=== PATIENT | female | born 1985 | race Caucasian/White ===

== ENCOUNTER 2023-12-03 06:31 | Emergency (ER) | payer SELFPAY ==
[2023-12-03] MEDS ORDERED: MORPHINE 4 MG/ML SYR ONE (07:09)
[2023-12-03] MEDS ORDERED: ONDANSETRON 4 MG/2 ML VIAL ONE (07:09)
[2023-12-03] MEDS ORDERED: TAMSULOSIN 0.4 MG SR CAP ONE (07:09)
[2023-12-03] MEDS ORDERED: NA CHLORIDE 0.9% 1,000 ML ONE (07:09)
[2023-12-03] MEDS ORDERED: KETOROLAC 30 MG/ML INJ ONE (07:12)
[2023-12-03 07:13] LABS: Absolute Eosinophils 0.1 K/uL (0-0.5); Absolute Lymphocytes (CBC) 3.3 K/uL (0.7-4.9); Absolute Monocytes 0.6 K/uL (0.1-1.3); Absolute Neutrophil 4.5 K/uL (1.8-8.0); Basophils % 0.4 % (0-1.3); Eosinophils % 0.8 % (0-4.4); Hematocrit 38.1 % (36.0-45.0); Hemoglobin 13.4 g/dL (12.0-15.0); MCH 33.5 pg (27.0-35.0); MCHC 35.3 g/dL (32.0-36.0); Monocytes % 6.9 % (3.3-12.3); Neutrophils % 52.9 % (41.7-73.7); Nucleated Red Blood Cells % 0.1 % (0-0); Platelets 286 thou/uL (152-406); RBC Red Blood Cell Count 4.01 M/uL (3.86-4.86); Red Cell Distribution Width 12.7 % (12.1-15.2)
[2023-12-03 07:31] LABS: Albumin/Globulin Ratio 1.1 (1.1-1.8); Anion Gap 4.6 mEq/L (5.0-15.0); Bilirubin Total 0.3 mg/dL (0.2-1.0); Globulin 3.7 g/dL (2.3-3.5); Potassium 3.6 mEq/L (3.5-5.1); Protein, Total 7.7 g/dL (6.4-8.2)
[2023-12-03 07:35] LABS: Specific Gravity 1.022 (1.005-1.030); Urine Bilirubin NEGATIVE (Negative); Urine Blood Negative (Negative); Urine Clarity Clear (Clear); Urine Color Light-Yellow (Yellow); Urine Glucose NEGATIVE (Negative); Urine Ketones NEGATIVE (Negative); Urine Microscopic Reflex YN NO UMIC; Urine Nitrite NEGATIVE (Negative); Urine Protein NEGATIVE (Negative); Urine Urobilinogen Normal (Normal); Urine pH 5.5 (5.0-7.0)
[2023-12-03 07:43] LABS: Specific Gravity 1.022 (1.005-1.030)
[2023-12-03] MEDS ORDERED: MAGNESIUM SULFATE 1 gm IVPB 1 GM/100 ML BAG IV ONE (07:54)
[2023-12-03] MEDS ORDERED: NA CHLORIDE 0.9% 500 ML ONE (07:54)
--- NOTE | 2023-12-03 08:25 | RAD REPORT ---
EXAM DESCRIPTION: CT - Abdomen Pelvis Wo Contrast - 12/03/2023 8:02 am CLINICAL HISTORY: ABD PAIN COMPARISON: No comparisons TECHNIQUE: Thin cut axial CT imaging of the abdomen and pelvis was performed without IV contrast. Mu ltiplanar reformats were generated and reviewed. All CT scans are performed using dose optimization technique as appropriate and may include automated exposure control or mA/KV adjustment according to patient size. FINDINGS: No suspicious findings in the lung bases. The liver, spleen, adrenal glands, and pancreas show no suspicious findings. Gallbladder and biliary tree are also without suspicious finding. Symmetric renal contour, without suspicious parenchymal findings within limits of noncontrast techniq ue. No evidence of hydroureteronephrosis. Nonobstructing left renal calculi the largest at the lower pole measuring 4 mm. 1-2 mm right superior pole calculus as well. No dilated bowel loops or bowel wall thickening. No free air, free fluid or inflammatory stranding. N o hernia, mass or bulky lymphadenopathy. The urinary bladder is without significant finding. No suspicious bony findings. IMPRESSION: Bilateral small nonobstructing renal calculi largest at the left lower pole measuring 4 mm. No other acute intra-abdominal process.
[2023-12-03] MEDS ORDERED: FENTANYL CITR 100 MCG/2 ML ONE (08:40)
--- NOTE | 2023-12-03 08:57 | EDPHYS ---
Physician Documentation [facility] Name: Ngoc Perdomo Age: 38 yrs Sex: Female : 1985 Arrival Date: 12/03/2023 Time: 06:31 Bed 13 Private MD: ED Physician Puma Quiroga HPI: 12/02 07:38 This 38 yrs old Female presents to ER via Ambulatory with complaints of sp4 Possible Kidney Stone, Pain. 07:38 48-year-old female with history of prior kidney stones presents with acute onset right sp4 flank pain right lower abdominal pain, also right lower back pain. Denied fever or hematuria. Historical: - Allergies: 06:54 Tape; jb4 - PMHx: 06:54 Asthma; kidney stones; jb4 - PSHx: 06:54 c-sections.; jb4 - Immunization history:: Adult Immunizations up to date. - Infectious Disease History:: Denies. - Social history:: Smoking status: Patient reports the use of cigarette tobacco products, smokes one pack cigarettes per day. Patient uses street drugs, marijuana. - Family history:: not pertinent. ROS: 07:38 Constitutional: Negative for fever, chills, and weight loss, positive right flank pain, sp4 positive right lower back pain, positive for right lower abdominal pain. 07:38 All other systems are negative, Exam: 07:38 Constitutional: This is a well developed, well nourished patient who is awake, alert, sp4 and in no acute distress. Head/Face: Normocephalic, atraumatic. Eyes: Pupils equal round and reactive to light, extra-ocular motions intact. Lids and lashes normal. Conjunctiva and sclera are not injected. Cornea within normal limits. Periorbital areas with no swelling, redness, or edema. ENT: Nares patent. No nasal discharge, no septal abnormalities noted. Tympanic membranes are normal and external auditory canals are clear. Oropharynx with no redness, swelling, or masses, exudates, or evidence of obstruction, uvula midline. Mucous membranes moist. Neck: Trachea midline, no thyromegaly or masses palpated, and no cervical lymphadenopathy. Supple, full range of motion without nuchal rigidity, or vertebral point tenderness. Chest/axilla: Normal chest wall appearance and motion. Nontender with no deformity. No lesions are appreciated. Cardiovascular: Regular rate and rhythm with a normal S1 and S2. No gallops, murmurs, or rubs. Normal PMI, no JVD. No pulse deficits. Respiratory: Lungs have equal breath sounds bilaterally, clear to auscultation and percussion. No rales, rhonchi or wheezes noted. No increased work of breathing, no retractions or nasal flaring. Abdomen/GI: Soft, with normal bowel sounds. No distension or tympany. No guarding or rebound. No evidence of tenderness throughout. Back: No spinal tenderness. No costovertebral tenderness. Skin: Warm, dry with normal turgor. Normal color with no rashes, no lesions, and no evidence of cellulitis. MS/ Extremity: Pulses equal, no cyanosis. Neurovascular intact. Full, normal range of motion. Neuro: Awake and alert, GCS 15, oriented to person, place, time, and situation. Cranial nerves II-XII grossly intact. Motor strength 5/5 in all extremities. Sensory grossly intact. Psych: Awake, alert, with orientation to person, place and time. Behavior, mood, and affect are within normal limits Vital Signs: 06:59 BP 98 / 61; Pulse 77; Resp 16; Temp 98.1; Pulse Ox 99% on R/A; Weight 77.11 kg; Height jb4 5 ft. 7 in. ; 07:25 BP 108 / 66; Pulse 67; Resp 18; Pulse Ox 96% on R/A; ph 08:02 BP 95 / 60; Pulse 68; Resp 18; Pulse Ox 97% on R/A; ph 08:31 BP 107 / 67; rn 09:16 BP 108 / 69; Pulse 71; Resp 18; Temp 97.9; Pulse Ox 99% on R/A; ph 06:59 Body Mass Index 26.63 (77.11 kg, 170.18 cm) jb4 [place] Coma Score: 07:38 Eye Response: spontaneous(4). Motor Response: obeys commands(6). Verbal Response: sp4 oriented(5). Total: 15. MDM: 06:56 Patient medically screened. sp4 07:48 Data reviewed: vital signs, nurses notes, lab test result(s), radiologic studies, CT sp4 scan. Transition of care: After a detail discussion of the patient's case, care is transferred to Puma Quiroga MD. 07:48 Differential Diagnosis altered mental status, Renal stone, Right flank pain . sp4 08:55 Counseling: I had a detailed discussion with the patient and/or guardian regarding the rn historical points, exam findings, and any diagnostic results supporting the discharge/admit diagnosis, lab results, radiology results, the need for outpatient follow up, to return to the emergency department if symptoms worsen or persist or if there are any questions or concerns that arise at home. Response to treatment: the patient's symptoms have markedly improved after treatment, and as a result, I will discharge patient. Special discussion: I discussed with the patient/guardian in detail that at this point there is no indication for admission to the hospital. It is understood, however, that if the symptoms persist or worsen the patient needs to return immediately for re-evaluation. Based on the history and exam findings, there is no indication for further emergent testing or inpatient evaluation. I discussed with the patient/guardian the need to see the urologist for further evaluation of the symptoms. ED course: Patient markedly improved. CT does not show actively passing stone. Patient reports last time she went to urinate feels much better and pain more controlled. I have personally reviewed all of the results, including but not limited to blood tests and imaging deemed necessary to safely discharge this patient at this time. All results given to and printed out for patient. I personally went over all the results with the patient and answered all questions. Patient will follow-up with PCP and or specialist as discussed. Return precautions given and understood.. 12/02 06:56 Order name: CBC with Diff; Complete Time: 07:35 sp4 12/02 06:56 Order name: CMP; Complete Time: 07:35 sp4 12/02 06:56 Order name: Lipase; Complete Time: 07:35 sp4 12/02 06:56 Order name: Test, Urine; Complete Time: 07:48 sp4 12/02 06:56 Order name: Urinalysis w/ reflexes; Complete Time: 07:37 sp4 12/02 06:56 Order name: CT Abd/Pelvis - Without Contrast; Complete Time: 08:31 sp4 12/02 06:56 Order name: IV Saline Lock; Complete Time: 07:24 sp4 12/02 06:56 Order name: Labs collected and sent; Complete Time: 07:24 sp4 Administered Medications: 07:24 Drug: NS 0.9% IV 1000 ml IV at 1 bolus Per protocol; 1000 mL bolus Route: IV; Rate: 1 ph bolus; Site: left antecubital; 08:03 Follow up: Response: No adverse reaction; IV Status: Completed infusion; IV Intake: ph 1000ml 07:24 Drug: TORadol - Ketorolac IVP 30 mg IVP once Route: IVP; Site: left antecubital; ph 08:03 Follow up: Response: No adverse reaction; Pain is decreased ph 07:24 Drug: Ondansetron IVP 8 mg IVP once; over 2 minutes Route: IVP; Site: left antecubital; ph 08:03 Follow up: Response: No adverse reaction ph 07:24 Drug: morphine IVP or IV 4 mg IVP once over 4 mins Route: IVP; Infused Over: 4 mins; ph Site: left antecubital; 08:03 Follow up: Response: No adverse reaction; Pain is decreased; RASS: Alert and Calm (0) ph 07:24 Drug: Flomax PO 0.4 mg PO once Route: PO; ph 08:04 Follow up: Response: No adverse reaction ph 08:02 Drug: NS 0.9% IV 500 ml IV at bolus once Route: IV; Rate: bolus; Site: left antecubital;ph 08:45 Follow up: Response: No adverse reaction; IV Status: Completed infusion; IV Intake: ph 500ml 08:03 Drug: Magnesium Sulfate IVPB 1 grams IVPB once over 1 hrs Route: IVPB; Infused Over: 1 ph hrs; Site: left antecubital; 09:17 Follow up: Response: No adverse reaction; IV Status: Completed infusion ph 08:43 Drug: fentaNYL (PF) IVP 50 mcg IVP once Route: IVP; Site: left antecubital; ph 09:17 Follow up: Response: No adverse reaction; Pain is decreased; RASS: Alert and Calm (0) ph Disposition Summary: 12/03/23 08:56 Discharge Ordered Notes: Location: Home rn Problem: new rn Symptoms: have improved rn Condition: Stable rn Diagnosis - Calculus of kidney rn Followup: rn - With: Private Physician - When: As needed - Reason: Recheck today's complaints, Re-evaluation by your physician Discharge Instructions: - Discharge Summary Sheet rn - Kidney Stones rn - Renal Colic rn Forms: - Medication Reconciliation Form rn - Antibiotic furniture rental consultant - Prescription Opioid Use rn - Patient Portal Instructions rn - Leadership Thank You Letter rn - Work release form ld1 Signatures: Dispatcher [employer] Puma Johnson MD MD rn Hall, Patricia, RN RN Jose Marquez RN RN jb4 Chris Peng MD MD sp4 Corrections: (The following items were deleted from the chart) 06:57 06:57 Abdomen Pelvis Wo Con+CT.RAD.BRZ ordered. EDMS EDMS
--- NOTE | 2023-12-03 08:57 | ER ---
Nurse's Notes [facility] Name: Ngoc Perdomo Age: 38 yrs Sex: Female : 1985 Arrival Date: 12/03/2023 Time: 06:31 Bed 13 Private MD: Diagnosis: Calculus of kidney Presentation: 12/02 06:50 Chief complaint: Patient states: I am having right lower back pain that radiates to my jb4 right abdomen. I have a history of kidney stones and I think this is one. It started at 10pm yesterday. Coronavirus screen: At this time, the client does not indicate any symptoms associated with coronavirus-19. Ebola Screen: No symptoms or risks identified at this time. Initial Sepsis Screen: Does the patient meet any 2 criteria? No. Patient's initial sepsis screen is negative. Does the patient have a suspected source of infection? No. Patient's initial sepsis screen is negative. Risk Assessment: Do you want to hurt yourself or someone else? Patient reports no desire to harm self or others. Onset of symptoms was December 03, 2023. Transition of care: patient was not received from another setting of care. 06:50 Method Of Arrival: Ambulatory jb4 06:50 Acuity: BHUMIKA 3 jb4 Historical: - Allergies: 06:54 Tape; jb4 - PMHx: 06:54 Asthma; kidney stones; jb4 - PSHx: 06:54 c-sections.; jb4 - Immunization history:: Adult Immunizations up to date. - Infectious Disease History:: Denies. - Social history:: Smoking status: Patient reports the use of cigarette tobacco products, smokes one pack cigarettes per day. Patient uses street drugs, marijuana. - Family history:: not pertinent. Screenin:27 [facility] ED Fall Risk Assessment (Adult) History of falling in the last 3 months, ph including since admission No falls in past 3 months (0 pts) Confusion or Disorientation No (0 pts) Intoxicated or Sedated No (0 pts) Impaired Gait No (0 pts) Mobility Assist Device Used No (0 pt) Altered Elimination No (0 pt) Score/Fall Risk Level 0 - 2 = Low Risk Oriented to surroundings, Maintained a safe environment, Hourly rounding (assess needs \T\ fall precautionary measures) done. Abuse screen: Denies threats or abuse. Denies injuries from another. Nutritional screening: No deficits noted. Tuberculosis screening: No symptoms or risk factors identified. Assessment: 07:25 General: Appears in no apparent distress. Behavior is calm, cooperative. Pain: ph Complains of pain in right low back Pain radiates to posterior aspect of right lateral abdomen and anterior aspect of right lateral abdomen. Neuro: Level of Consciousness is awake, alert, obeys commands, Oriented to person, place, time, situation. Cardiovascular: Capillary refill < 3 seconds in bilateral fingers Patient's skin is warm and dry. GI: Abdomen is non-distended, Abd is soft and non tender X 4 quads. Reports lower abdominal pain, nausea. : Reports pain in right flank(s), lower quadrant(s) in lower back. Derm: Skin is pink, warm \T\ dry. Musculoskeletal: Circulation, motion, and sensation intact. Range of motion: intact in all extremities. 08:01 Reassessment: Patient appears in no apparent distress at this time. Patient and/or ph family updated on plan of care and expected duration. Pain level reassessed. Vital Signs: 06:59 BP 98 / 61; Pulse 77; Resp 16; Temp 98.1; Pulse Ox 99% on R/A; Weight 77.11 kg; Height jb4 5 ft. 7 in. ; 07:25 BP 108 / 66; Pulse 67; Resp 18; Pulse Ox 96% on R/A; ph 08:02 BP 95 / 60; Pulse 68; Resp 18; Pulse Ox 97% on R/A; ph 08:31 BP 107 / 67; rn 09:16 BP 108 / 69; Pulse 71; Resp 18; Temp 97.9; Pulse Ox 99% on R/A; ph 06:59 Body Mass Index 26.63 (77.11 kg, 170.18 cm) jb4 [place] Coma Score: 07:38 Eye Response: spontaneous(4). Motor Response: obeys commands(6). Verbal Response: sp4 oriented(5). Total: 15. ED Course: 06:36 Patient arrived in ED. gm2 06:54 Triage completed. jb4 06:54 Arm band placed on right wrist. jb4 06:56 Chris Peng MD is Attending Physician. sp4 07:02 Abbie Nair RN is Primary Nurse. ph 07:05 Initial lab(s) drawn, by me, sent to lab. Inserted saline lock: 20 gauge in left ph antecubital area, using aseptic technique. Blood collected. 07:24 CMP Sent. ph 07:24 Lipase Sent. ph 07:24 Test, Urine Sent. ph 07:24 Urinalysis w/ reflexes Sent. ph 07:27 Patient has correct armband on for positive identification. Bed in low position. Call ph light in reach. Side rails up X 1. Pulse ox on. NIBP on. Door closed. Noise minimized. Lights dimmed. Warm blanket given. Pillow given. 07:27 Provided Education on: Estimated time for test results and use of call light. ph 07:47 Attending Physician role handed off by Chris Peng MD rn 07:47 Puma Quiroga MD is Attending Physician. rn 08:03 CT Abd/Pelvis - Without Contrast In Process Unspecified. EDMS 08:[address] via wheelchair. ph 09:16 No provider procedures requiring assistance completed. IV discontinued, intact, ph bleeding controlled, No redness/swelling at site. Pressure dressing applied. Administered Medications: 07:24 Drug: NS 0.9% IV 1000 ml IV at 1 bolus Per protocol; 1000 mL bolus Route: IV; Rate: 1 ph bolus; Site: left antecubital; 08:03 Follow up: Response: No adverse reaction; IV Status: Completed infusion; IV Intake: ph 1000ml 07:24 Drug: TORadol - Ketorolac IVP 30 mg IVP once Route: IVP; Site: left antecubital; ph 08:03 Follow up: Response: No adverse reaction; Pain is decreased ph 07:24 Drug: Ondansetron IVP 8 mg IVP once; over 2 minutes Route: IVP; Site: left antecubital; ph 08:03 Follow up: Response: No adverse reaction ph 07:24 Drug: morphine IVP or IV 4 mg IVP once over 4 mins Route: IVP; Infused Over: 4 mins; ph Site: left antecubital; 08:03 Follow up: Response: No adverse reaction; Pain is decreased; RASS: Alert and Calm (0) ph 07:24 Drug: Flomax PO 0.4 mg PO once Route: PO; ph 08:04 Follow up: Response: No adverse reaction ph 08:02 Drug: NS 0.9% IV 500 ml IV at bolus once Route: IV; Rate: bolus; Site: left antecubital;ph 08:45 Follow up: Response: No adverse reaction; IV Status: Completed infusion; IV Intake: ph 500ml 08:03 Drug: Magnesium Sulfate IVPB 1 grams IVPB once over 1 hrs Route: IVPB; Infused Over: 1 ph hrs; Site: left antecubital; 09:17 Follow up: Response: No adverse reaction; IV Status: Completed infusion ph 08:43 Drug: fentaNYL (PF) IVP 50 mcg IVP once Route: IVP; Site: left antecubital; ph 09:17 Follow up: Response: No adverse reaction; Pain is decreased; RASS: Alert and Calm (0) ph Medication: 07:27 VIS not applicable for this client. ph Intake: 08:03 IV: 1000ml; Total: 1000ml. ph 08:45 IV: 500ml; Total: 1500ml. ph Outcome: 08:56 Discharge ordered by MD. rn 09:16 Discharged to home ambulatory, with significant other, ph 09:16 Condition: good 09:16 Discharge instructions given to patient, Instructed on discharge instructions, follow up and referral plans. Demonstrated understanding of instructions, follow-up care, 09:17 Patient left the ED. ph Signatures: Dispatcher [employer] EDPuma Bess MD MD rn Hall, Patricia, RN RN ph Bryson, James, RN RN jb4 Chris Peng MD MD sp4 Reina Barbosa 2
[2023-12-03 09:34] VITALS: BP 108/69; TEMP 97.9; O2SAT 99
== END 2023-12-03 09:17 | disposition home or self-care (01) ==
LOC: ER 06:31
DX: N20.0 Calculus of kidney (principal)
CPT/HCPCS: 36415; 74176; 80053; 81003; 81025; 83690; 85025; 96361; 96365; 96375; 99285; J2405; J3010; J3475; J7030; J7040